=== PATIENT | male | born 1970 | race Caucasian/White ===

== ENCOUNTER 2016-11-12 16:57 | Emergency (ER) | payer OTHER ==
[~2016-11-12] VITALS: Ht 185.4 cm; Wt 145.4 kg
[2016-11-12 16:59] VITALS: BP 133/81; PULSE 75; RESP 20; TEMP 97.6; O2SAT 92
[2016-11-12] MEDS ORDERED: AMLO10TA2 PO (18:44)
--- NOTE | 2016-11-12 18:59 | RADRPT ---
EXAM DATE/TIME: 11/12/2016 18:15 [place] COMPARISON: No previous studies available for comparison. INDICATIONS : Fall hit back of head RADIATION DOSE: 56.36 CTDIvol (mGy) MEDICAL HISTORY : Cardiovascular disease. Hypertension. SURGICAL HISTORY : None. ENCOUNTER: Initial ACUITY: 1 day PAIN SCALE: 5/10 LOCATION: cranial TECHNIQUE: Multiple contiguous axial images were obtained of the head. Using automated exposure control and adj ustment of the mA and/or kV according to patient size, radiation dose was kept as low as reasonably a chievable to obtain optimal diagnostic quality images. FINDINGS: CEREBRUM: The ventricles are normal for age. No evidence of midline shift, mass lesion, hemorrhage or acute in farction. No extra-axial fluid collections are seen. POSTERIOR FOSSA: The cerebellum and brainstem are intact. The 4th ventricle is midline. The cerebellopontine angle i s unremarkable. EXTRACRANIAL: There is a posterior parietal scalp hematoma/laceration. There is essentially complete opacification of the left maxillary and ethmoid air cells. There appears to been previous nasoantral window. Tiny f luid level seen in the right maxillary air cell. SKULL: The calvaria is intact. No evidence of skull fracture. CONCLUSION: 1. No bleed or other acute intracranial abnormality. 2. Posterior parietal scalp hematoma and laceration. 3. Acute on chronic-appearing sinus disease. Benji Puente MD on November 12, 2016 at 18:56 Board Certified Radiologist. This report was verified electronically.
[2016-11-12] MEDS ORDERED: TETANUS/DIPHTHERIA TOXOID ADULT 0.5 ML VIAL IM ONE (19:00)
--- NOTE | 2016-11-12 19:06 | PD ---
HPI Chief Complaint: Head Injury Time Seen by Provider: 18:58 Travel History International Travel<30 days: No Contact w/Intl Traveler<30days: No Traveled to known affect area: No History of Present Illness HPI The patient is a 46-year-old male who presents to emergency department after a slip and fall. The patient states he was drinking alcohol earlier today when he slipped and fell, falling backwards, striking the posterior aspect of his head. The patient does not think there was a loss of consciousness. The patient complains of minimal headache. The patient states his last tetanus shot was 2 years ago, according to his report. He denies any neck pain, back pain, lower back pain, or focal deficits. He denies any weakness, numbness, or tingling of the upper or lower extremities. Symptoms are mild to moderate, exacerbated after falling, and self alleviating. The patient does admit to drinking alcohol earlier today. The patient is currently on vacation from [place] for the [employer] [facility]. PFS Past Medical History Cardiovascular Problems: Yes (HTN) Hypertension: Yes Tetanus Vaccination: < 5 Years Past Surgical History Surgical History: No Previous Surgery Social History Alcohol Use: Yes (" A few drinks ") Tobacco Use: No Substance Use: No Allergies-Medications (Allergen,Severity, Reaction): Coded Allergies: No Known Allergies (Unverified , 11/12/16) Reported Meds & Prescriptions Reported Meds & Active Scripts Active Reported Amlodipine (Amlodipine Besylate) 10 Mg Tab 10 Mg PO DAILY Review of Systems Except as stated in HPI: all other systems reviewed are Neg Eyes: No: Blurred Vision HENT: Positive: Headaches (minimal headache), No: Neck Pain Cardiovascular: No: Chest Pain or Discomfort, Syncope Respiratory: No: Shortness of Breath Gastrointestinal: No: Nausea, Vomiting, Abdominal Pain Musculoskeletal: No: Weakness Neurologic: No: Focal Abnormalities Physical Exam Narrative GENERAL: Awake, alert, pleasant 46 red male who appears his stated age and is in no acute respiratory distress. SKIN: 3 cm semicircular laceration to the superior occipital region. HEAD: 370 semicircular laceration to the superior occipital region. EYES: Pupils equal and round. Pupils are 4 mm bilateral and reactive. ENT: No nasal bleeding or discharge. Mucous membranes pink and moist. NECK: Trachea midline. No JVD. No tenderness of the cervical vertebrae. CARDIOVASCULAR: Regular rate and rhythm. No murmur appreciated. RESPIRATORY: No accessory muscle use. Clear to auscultation. Breath sounds equal bilaterally. GASTROINTESTINAL: Abdomen soft, non-tender, nondistended. Back: No tenderness over the thoracic or lumbar vertebrae. MUSCULOSKELETAL: No obvious deformities. No clubbing. No cyanosis. No edema. NEUROLOGICAL: Awake and alert. No obvious cranial nerve deficits. Motor grossly within normal limits. Normal speech. Alert and oriented person, place, and year. Follows commands without difficulty. Nonfocal exam. PSYCHIATRIC: Appropriate mood and affect; insight and judgment normal. Data Data Last Documented VS Vital Signs Date Time Temp Pulse Resp B/P Pulse Ox O2 Delivery O2 Flow Rate FiO2 11/12/16 20:07 66 20 118/69 94 Room Air 11/12/16 16:[address] Brain W/O Iv Contrast(Rout) (11/12/16 ) Alcohol (Ethanol) (11/12/16 18:59) Basic Metabolic Panel (Bmp) (11/12/16 18:59) Magnesium (Mg) (11/12/16 18:59) Tetanus/Diphtheria Tox Adult (Tetanus/Di (11/12/16 19:00) Lidocai-Epi 1%-1:100,000 Inj (Xylocaine- (11/12/16 19:30) Labs Laboratory Tests Test 11/12/16 19:00 Sodium Level 135 MEQ/L Potassium Level 3.8 MEQ/L Chloride Level 100 MEQ/L Carbon Dioxide Level 24.8 MEQ/L Anion Gap 10 MEQ/L Blood Urea Nitrogen 10 MG/DL Creatinine 0.75 MG/DL Estimat Glomerular Filtration 112 ML/MIN Rate Random Glucose 104 MG/DL Calcium Level 8.5 MG/DL Magnesium Level 2.4 MG/DL Ethyl Alcohol Level 292 MG/DL MDM Medical Decision Making Medical Screen Exam Complete: Yes Emergency Medical Condition: Yes Medical Record Reviewed: Yes Interpretation(s) Last Impressions Head CT 11/12/16 0000 Signed Impressions: Service Date/Time: Saturday, November 12, 2016 18:15 - CONCLUSION: 1. No bleed or other acute intracranial abnormality. 2. Posterior parietal scalp hematoma and laceration. 3. Acute on chronic-appearing sinus disease. Benji Puente MD Laboratory Tests Test 11/12/16 19:00 Sodium Level 135 MEQ/L Potassium Level 3.8 MEQ/L Chloride Level 100 MEQ/L Carbon Dioxide Level 24.8 MEQ/L Anion Gap 10 MEQ/L Blood Urea Nitrogen 10 MG/DL Creatinine 0.75 MG/DL Estimat Glomerular Filtration 112 ML/MIN Rate Random Glucose 104 MG/DL Calcium Level 8.5 MG/DL Magnesium Level 2.4 MG/DL Ethyl Alcohol Level 292 MG/DL Differential Diagnosis Differential diagnosis includes closed head injury, concussion, intracranial hemorrhage, skull fracture, laceration, abrasion, alcohol intoxication, hyponatremia, syncope. Narrative Course CT of the brain was ordered. Tetanus shot was ordered. Alcohol, BMP, and magnesium level were sent to lab. CT of the brain is negative for acute intracranial hemorrhage, does reveal scalp laceration and hematoma. The laceration was repaired by the mid-level provider, please refer to the procedure note. Sodium is normal, alcohol level is elevated at 292. Patient will be allowed to sleep it off, he will be discharged and he is able to and bleed has a safe disposition home. Diagnosis Primary Impression: Closed head injury Qualified Code: S09.90XA - Closed head injury, initial encounter Additional Impressions: Laceration of occipital scalp Qualified Code: S01.01XA - Laceration of occipital scalp, initial encounter Alcohol intoxication Qualified Code: F10.120 - Alcohol intoxication, uncomplicated Patient Instructions: General Instructions Additional Instructions: Decrease alcohol. Wound care instructions. Staple removal in 7 days. Follow- up with her primary physician. Return if symptoms worsen or progress. Med/Other Pt SpecificInfo: No Change to Meds Disposition: 01 DISCHARGE HOME Condition: Stable Amrit John MD Nov 12, 2016 19:06
[2016-11-12] MEDS ORDERED: LIDOCAINE 1%/EPINEPHrine 1:100,000 SOLN 20 ML VIAL INFIL ONE (19:30)
[2016-11-12 19:41] LABS: BICARBONATE 24.8 MEQ/L (21.0-32.0); MAGNESIUM 2.4 MG/DL (1.5-2.5); POTASSIUM 3.8 MEQ/L (3.5-5.1)
--- NOTE | 2016-11-12 20:04 | PD ---
Physical Exam Date Seen by Provider: Nov 12, 2016 Time Seen by Provider: 20:03 Narrative I was asked by Dr. John to repair laceration the patient's occipital scalp. Please see his documentation for full history and physical. Data Data Last Documented VS Vital Signs Date Time Temp Pulse Resp B/P Pulse Ox O2 Delivery O2 Flow Rate FiO2 11/12/16 18:31 65 18 Room Air 11/12/16 16:59 97.6 133/[address] Brain W/O Iv Contrast(Rout) (11/12/16 ) Alcohol (Ethanol) (11/12/16 18:59) Basic Metabolic Panel (Bmp) (11/12/16 18:59) Magnesium (Mg) (11/12/16 18:59) Tetanus/Diphtheria Tox Adult (Tetanus/Di (11/12/16 19:00) Lidocai-Epi 1%-1:100,000 Inj (Xylocaine- (11/12/16 19:30) Labs Laboratory Tests Test 11/12/16 19:00 Sodium Level 135 MEQ/L Potassium Level 3.8 MEQ/L Chloride Level 100 MEQ/L Carbon Dioxide Level 24.8 MEQ/L Anion Gap 10 MEQ/L Blood Urea Nitrogen 10 MG/DL Creatinine 0.75 MG/DL Estimat Glomerular Filtration 112 ML/MIN Rate Random Glucose 104 MG/DL Calcium Level 8.5 MG/DL Magnesium Level 2.4 MG/DL Ethyl Alcohol Level 292 MG/DL [facility] Medical Record Reviewed: Yes Supervised Visit with YOSEF: No Procedures Procedure Narrative LACERATION LOCATION: Occipital scalp LENGTH: 5 cm NUMBER OF STITCHES/MIO: 9 stable REPAIR: The area of the laceration was prepped with Betadine and sterilely draped. The laceration was infiltrated with 1% lidocaine with epinephrine. The wound was copiously irrigated and explored without evidence of foreign body, tendon injury or neurovascular injury. The wound was closed using staple. This was a single layer repair. A sterile dressing was applied. The patient was advised to keep the dressing clean and dry. Patient tolerated the procedure well. Condition: Stable Kathy Nice KYLE Nov 12, 2016 20:04
[2016-11-12 20:07] VITALS: BP 118/69; PULSE 66; RESP 20; O2SAT 94
[2016-11-13 07:37] VITALS: BP 137/79
== END 2016-11-13 07:39 | disposition home or self-care (01) ==
LOC: NEPE 16:57 → NEPB 11-13 07:39
DX: S01.01XA Laceration without foreign body of scalp, initial encounter (principal); F10.120 Alcohol abuse with intoxication, uncomplicated; W01.0XXA Fall on same level from slipping, tripping and stumbling without subsequent striking against object, initial encounter; Y90.8 Blood alcohol level of 240 mg/100 ml or more; Z23 Encounter for immunization
CPT/HCPCS: 12002; 70450; 80048; 80320; 83735; 90471; 90714